=== PATIENT | male | born 1945 | race Caucasian/White ===

== ENCOUNTER → 2019-05-04 | Outpatient (CLI) | payer OTHER ==
[~2019-05-04] MED LIST: ALLEGRA ALLERG180 MG PO; ALLOPURINOL 30300 M1 PO; AMARYL1 MG PO; ASA5UEC PO; ASPIRIN EC81 M1 PO; ASPIRIN325 PO; BACLOFEN 10MG T10 MG PO; CLOBETASOL EMOL15 GM TOP; FLEXERIL PO; FLOMAX0.4 MG PO; GLUMETZA500 PO; HALDOL 0.5 MG0.5 MG PO; HYDROCORTISONE 01 OZ; ISOSORBIDE MONO30 M1 PO; LANCETS THIN1 EACH MISCELL; LANTUS SUBQ; LIPITOR40 MG PO; LISINOPRIL-HCT1 EAC1 PO; LOPRESSOR PO; LOSARTAN POTASS50 MG PO; METFORMIN PO; NITROGLYCERIN0.3 M1 SUBLING; NORCO 10-325 T1 EACH PO; NORCO 5-325 TA1 EACH PO; OMEPRAZOLE10 MG PO; OMEPRAZOLE20 M2 PO; ONE TOUCH ULTR1 EACH MISCELL; OXYBUTYNIN 5 MG5 M2 PO; PAXIL20 MG PO; POTASSIUM PO; PRAVACHOL PO; PRINZIDE 20-121 EACH PO; PROAIR HFA8.5 GM; PROSCAR 5MG TABL5 M1 PO; PROTONIX40 M4 PO; ROPINIROLE HCL4 M1 PO; SYMBICORT160 MCG/4.; VERAPAMIL E.R240 M1; ZYRTEC 10 MG TA10 MG PO
== END ==
LOC: M.PC 09:58
DX: M47.816 Spondylosis without myelopathy or radiculopathy, lumbar region (principal); M12.88 Other specific arthropathies, not elsewhere classified, other specified site; M51.36 Other intervertebral disc degeneration, lumbar region

== ENCOUNTER 2020-05-25 11:52 | Emergency (ER) | payer BC ==
[~2020-05-25] VITALS: Ht 180.3 cm; Wt 130.6 kg
[2020-05-25] MEDS ORDERED: AUGMENTIN 500-1 EACH PO (14:24)
[2020-05-25 14:37] VITALS: BP 122/56
--- NOTE | 2020-05-25 17:05 | EKG ---
[place] [address] ELECTROCARDIOGRAM REPORT Name: CHRIS DAVID Room: [facility]#: [id number] Admission: 05/25/20 Attend Phys: Discharge: 05/25/20 Date of : 47 Date of Service: 05/25/20 1211 Report #: [id number] THIS REPORT FOR: //name// [facility] ED Test Date: 2020-05-25 Test Time: 12:11:53 Pat Name: CHRIS DAVID Department: Room: Gender: Aircraft Maintenance Technician: LUKAS : 1945 Requested By: Juana Ocampo Order Number: [id number] Emory MD: Chris Calvillo Measurements Intervals [place] Rate: 60 P: 56 ND: 157 QRS: 46 QRSD: 103 T: 63 QT: 426 QTc: 426 Interpretive Statements Sinus rhythm Abnormal R-wave progression, early transition Borderline T abnormalities, anterior leads Baseline wander in lead(s) V2 No previous ECG available for comparison Electronically Signed On 05-25-2020 17:05:35 [employer] SERVIC[employer] SUPERVISOR by Chris Calvillo [email or web address] <ELECTRONICALLY SIGNED> By: Chris Calvillo MD, FACC 05/25/20 1705 121 121 Chris Calvillo MD, FACC /EPI
== END 2020-05-25 14:37 | disposition home or self-care (01) ==
LOC: M.ERS 11:52
DX: S16.1XXA Strain of muscle, fascia and tendon at neck level, initial encounter (principal); G93.0 Cerebral cysts; M79.621 Pain in right upper arm; I10 Essential (primary) hypertension; E11.9 Type 2 diabetes mellitus without complications; E78.5 Hyperlipidemia, unspecified; K21.9 Gastro-esophageal reflux disease without esophagitis; E66.9 Obesity, unspecified; I25.10 Atherosclerotic heart disease of native coronary artery without angina pectoris; Z79.899 Other long term (current) drug therapy; Z79.82 Long term (current) use of aspirin; Z88.8 Allergy status to other drugs, medicaments and biological substances; Z88.6 Allergy status to analgesic agent; W55.03XA Scratched by cat, initial encounter; Y93.89 Activity, other specified; Y92.89 Other specified places as the place of occurrence of the external cause; Y99.8 Other external cause status